=== PATIENT | male | born 1960 | race Caucasian/White ===

== ENCOUNTER 2022-10-27 05:28 | Day surgery (SDC) | payer BC ==
[~2022-10-27] VITALS: Ht 175.3 cm; Wt 123.6 kg
[2022-10-27] VITALS (12 sets, daily range): BP systolic 98–157; BP diastolic 58–93; PULSE 58–75; TEMP 97.4–98.7
[~2022-10-27 05:28] MED LIST: ELIQUIS 5MG PO; FENTANYL 12MCG TD; FENTANYL 25 MCG TD; FLOMAX 0.40.4 MG/CAP PO; LEXAPRO 5MG5 MG PO; LIORESAL 1010 MG/TAB PO; MACRODANTIN100 PO; NEURONTIN600 MG/TAB PO; REQUIP2 MG PO; TYLENOL 500MG500 MG PO
[2022-10-27] MEDS ORDERED: NORVASC 5MG5 MG/TAB PO (06:48)
[2022-10-27] MEDS ORDERED: BYSTOLIC10 MG PO (06:48)
[2022-10-27] MEDS ORDERED: HCTZ 25MG TAB25 MG PO (06:49)
[2022-10-27] MEDS ORDERED: CATAPRES 0.1MG0.1 MG PO (06:49)
--- NOTE | 2022-10-27 11:18 | NUR ---
Patient arrived to the unit from PACU at 1010 via bed. Patient awake and alert. Milton wrap dressing to left knee intact. SCD in place. Patient has sensation to left toes and able to wiggle toes. Ice pack apply to the area. VSS. Pulses present in all extremities. Patient oriented to room and the use of call schwarz. Family member at the bedside.
--- NOTE | 2022-10-27 23:54 | NUR ---
SHIFT REPORT FROM CARROL WINSTON. PATIENT IN CHAIR ON ROOM ENTRY. HS MEDS PER EMAR. PRN YUMIKO FOR MODERATE PAIN. ALESSANDRA WRAP TO L KNEE CDI. AMBULATED IN HALLS WITH SBA AND USE OF WALKER. IV TO INT. DENIES ADDITIONAL NEEDS. CALL LIGHT IN REACH.
[2022-10-28 00:07] VITALS: BP 120/55; PULSE 81; TEMP 99
[2022-10-28 03:52] VITALS: BP 135/65; PULSE 96; TEMP 98.5
[2022-10-28 06:54] LABS: HEMOGLOBIN 13.9 g/dl (13.5-18.0)
[2022-10-28 07:13] LABS: CALCIUM 8.3 mg/dL (8.4-10.2); CREATININE, serum 0.79 mg/dL (0.72-1.25)
--- NOTE | 2022-10-28 07:15 | NUR ---
Received shift report from the night nurse, Khushi WINSTON.
[2022-10-28 07:30] VITALS: BP 151/98; PULSE 85; TEMP 98.1
[2022-10-28 08:35] VITALS: BP 143/70; PULSE 86; TEMP 99.1
--- NOTE | 2022-10-28 09:10 | NUR ---
0840 Assessment completed. patient reported pain of 7 on a scale of 1-10. patient agreeable.ice was placed on left knee. call light within reach. will continue to monitor.
--- NOTE | 2022-10-28 10:34 | NUR ---
Patient sitting up in the chair by the bedside eating breakfast. Milton wrap dressing to left knee dry and intact. Noted some swelling at left knee. Patient c/o pain at the affected site and rated earl level 7/10. Pulses palpable. Call schwarz within reach.
[2022-10-28 11:10] VITALS: BP 131/74; PULSE 86; TEMP 97.9
--- NOTE | 2022-10-28 12:25 | NUR ---
Initial visit; Patient and his thanked Bathing Suit Maker for checking on him and stated that he is doing as well as can be expected. He has a smile on his face and seems to be pleased that his knee is doing ok. Bathing Suit Maker wished them well.
--- NOTE | 2022-10-28 12:50 | NUR ---
District Sales Manager met with patient and his , Inge (ph#[phone]) to discuss discharge planning. Patient lives in [place] and sees Dr. Cevallos for primary care. Patient obtains medications from [facility] and has a walker at home for recovery. Patient is not sure what is being recommended by his physician at this time, but stated if outpatient PT is recommended, he would like to get set up with [facility]. Patient is normally independent with ADLS. Patient would like to complete DPOA-HC while he is here. SW assisted patient in filling out the form. Patient chose to designate his , Inge and daughter, Kerrie. ERNIE and [facility] Gabriela provided witness signature. ERNIE placed copy on patient's chart then provided original and copies to patient. Discharge Plan: Home, outpatient therapy
[2022-10-28] MEDS ORDERED: ASPIRIN 81M81 MG/TA2 PO (14:11)
[2022-10-28] MEDS ORDERED: CELEBREX 200MG200 MG PO (14:12)
[2022-10-28] MEDS ORDERED: DOXYCYCLINE 10100 MG PO (14:12)
[2022-10-28] MEDS ORDERED: PERCOCET 325 MG1 TA2 PO (14:13)
--- NOTE | 2022-10-28 14:34 | NUR ---
Patient requests for pain medication at the left knee with pain level 6/10. Roxicodone administered. See E-mar.
--- NOTE | 2022-10-28 15:35 | NUR ---
PATIENT AND HAVE BEEN WAITING PATIENTLY AND STATED THEY HAVE BEEN WAITING FOR OVER 2 HOURS TO DISCHARGE. GAVE DISCHARGE INSTRUCTIONS, E-SCRIPTS SENT, DISCUSSED F/U APT. ANSWERED QUESTIONS/CONCERNS. DC'D IV SITE AND COVERED WITH [facility] [employer]. PATIENT REQUESTING THE REPEAT PAIN PILL BEFORE DISCHARGE, THAT HE HAD ALREADY REQUESTED BUT HASN'T RECEIVED YET. GAVE PRN ROXICODONE, ONE TAB. PATIENT GETTING DRESSED AND WILL CALL WHEN READY.
--- NOTE | 2022-10-28 16:25 | NUR ---
PATIENT NOW DISCHARGING VIA WC TO PERSONAL VEHICLE WITH .
== END 2022-10-28 15:40 | disposition home or self-care (01) ==
LOC: SDCO 05:28 → SURG 10:17 → SDCO 10-28 15:40
PROVIDERS: Orthopaedic Surgery
DX: M17.12 Unilateral primary osteoarthritis, left knee (principal); I10 Essential (primary) hypertension; Z87.891 Personal history of nicotine dependence; Z79.899 Other long term (current) drug therapy
CPT/HCPCS: OP; A9284; C1713; C1776; J0690; J1580; J1885; J2250; J2270; J2704; J2795; J3010; J7030; J7120